=== PATIENT | female | born 1965 | race American Indian/Alaskan Native ===

== ENCOUNTER 2019-12-13 15:09 | Emergency (ER) | payer OTHER ==
--- NOTE | 2019-12-13 15:56 | Emergency Department Report ---
ED Dizziness HPI - General Chief Complaint: Chest Pain Stated Complaint: HYPERTENSIVE CRISIS/CHEST PAIN Time Seen by Provider: 12/13/19 15:40 Source: patient, EMS Mode of arrival: Stretcher Limitations: No Limitations - History of Present Illness Initial Comments: 54-year-old female, history of diabetes, presents to ED with complaint of dizziness. Patient states she was at home watching TV and approximately 3 hours ago she began to feel dizzy, as if the room were spinning, with associated nausea. Patient later vomited. While vomiting she had a nosebleed. After vomiting, she experienced chest pain. EMS was called. Triage notes states that patient's daughter reported slurred speech, however, I spoke with patient's 17 yr old daughter over the phone and she denies that patient had any slurred speech. Daughter states speech was always normal, never slurred. States she sounded as if she was a little out of breath. Patient states she was just speaking very slowly because of her chest pain. She denies any extremity numbness or weakness. No reported facial droop. Patient denies fever, cough, diarrhea, headache, exposure to any known COVID-positive persons. MD Complaint: dizziness -: hour(s) (3) History of Same: No History of Trauma: No Severity: moderate Improves With: nothing Worsens With: nothing Associated Symptoms: chest pain. denies: cough, fever/chills, shortness of breath - Related Data Home Medications Medication Instructions Recorded Confirmed Last Taken Rosuvastatin (Nf) [Crestor] 5 mg PO QHS 08/15/16 08/15/16 08/14/16 Previous Rx's Medication Instructions Recorded Last Taken Type AtorvaSTATin 10 mg PO QHS tablet 08/17/16 Unknown Rx Cyanocobalamin [Vitamin B-12] 1,000 mcg SUB-Q DAILY vial 08/17/16 Unknown Rx Ferrous Sulfate [Feosol 325 MG tab] 325 mg PO DAILY tablet 08/17/16 Unknown Rx Pioglitazone [Actos] 15 mg PO QDAY tablet 08/17/16 Unknown Rx Meclizine [Antivert] 25 mg PO TID PRN #20 tablet 12/13/19 Unknown Rx Allergies Allergy/AdvReac Type Severity Reaction Status Date / Time No Known Allergies Allergy Verified 03/31/15 11:11 ED Review of Systems ROS: Stated complaint: HYPERTENSIVE CRISIS/CHEST PAIN Other details as noted in HPI Comment: All other systems reviewed and negative Constitutional: denies: chills, fever ENT: epistaxis Respiratory: denies: cough, shortness of breath Cardiovascular: chest pain Gastrointestinal: vomiting Neurological: vertigo. denies: headache, weakness, numbness ED Past Medical Hx - Past Medical History Hx Diabetes: Yes - Surgical History Additional Surgical History: - Social History Smoking Status: Never Smoker Substance Use Type: Alcohol - Medications Home Medications: Home Medications Medication Instructions Recorded Confirmed Last Taken Type Rosuvastatin (Nf) [Crestor] 5 mg PO QHS 08/15/16 08/15/16 08/14/16 History AtorvaSTATin 10 mg PO QHS tablet 08/17/16 Unknown Rx Cyanocobalamin [Vitamin B-12] 1,000 mcg SUB-Q DAILY vial 08/17/16 Unknown Rx Ferrous Sulfate [Feosol 325 MG tab] 325 mg PO DAILY tablet 08/17/16 Unknown Rx Pioglitazone [Actos] 15 mg PO QDAY tablet 08/17/16 Unknown Rx Meclizine [Antivert] 25 mg PO TID PRN #20 tablet 12/13/19 Unknown Rx ED Physical Exam - General Limitations: No Limitations General appearance: alert, in no apparent distress - Head Head exam: Present: atraumatic, normocephalic - Eye Eye exam: Present: normal appearance, EOMI - ENT ENT exam: Present: mucous membranes moist, other (No epistaxis present) - Neck Neck exam: Present: normal inspection - Respiratory Respiratory exam: Present: normal lung sounds bilaterally. Absent: respiratory distress - Cardiovascular Cardiovascular Exam: Present: regular rate, normal rhythm - GI/Abdominal GI/Abdominal exam: Present: soft. Absent: distended, tenderness - Extremities Exam Extremities exam: Present: normal inspection - Neurological Exam Neurological exam: Present: alert, oriented X3, CN II-XII intact, normal gait. Absent: motor sensory deficit - Psychiatric Psychiatric exam: Present: normal affect, normal mood - Skin Skin exam: Present: warm, dry, intact, normal color ED Course Vital Signs 12/13/19 12/13/19 12/13/19 15:25 16:30 18:17 Temperature 97.9 F Pulse Rate 74 70 85 Respiratory 12 12 19 Rate Blood Pressure 145/68 Blood Pressure 145/68 152/80 115/74 [Left] O2 Sat by Pulse 99 100 98 Oximetry - Reevaluation(s) Reevaluation #1: 12/13/19 18:00 Pt feeling much better. Ambulated to the bathroom and back w/ nurse, without assistance. ED Medical Decision Making - Lab Data Result diagrams: 12/13/19 16:05 12/13/19 16:05 - EKG Data -: EKG Interpreted by Me EKG shows normal: sinus rhythm, axis, intervals, QRS complexes, ST-T waves Rate: normal - EKG Data Interpretation: no acute changes - Radiology Data Radiology results: report reviewed, image reviewed - Medical Decision Making 54-year-old female presents to ED with dizziness. Neuro exam is normal, nonfocal. CT head normal. Patient emesis and chest pain as well. EKG, troponin both normal. Patient mildly hypertensive when she arrived, however BP has improved. Patient ambulating without assistance. Patient has normal gait. She is feeling much better at this time. Will discharge home. Prescription given for meclizine and case that this may have possibly been benign positional vertigo. Outpatient follow-up advised. Return precautions given. - Differential Diagnosis CVA, intracranial abnormality, ACS Critical care attestation.: If time is entered above; I have spent that time in minutes in the direct care of this critically ill patient, excluding procedure time. ED Disposition Clinical Impression: Dizziness, Chest pain, Nausea & vomiting Disposition: TO HOME OR SELFCARE Is pt being admited?: No Condition: Stable Instructions: Chest Pain (ED), Benign Paroxysmal Positional Vertigo (ED), Dizziness (ED) Prescriptions: Meclizine [Antivert] 25 mg PO TID PRN #20 tablet PRN Reason: Vertigo Referrals: PRIMARY CARE [Primary Care Provider] - 3-5 Days [facility] [Provider Group] - 3-5 Days Time of Disposition: 18:01
[2019-12-13 16:19] LABS: Basophils % (Auto) 0.7 % (0.0-1.8); Eosinophils # (Auto) 0.1 K/mm3 (0.0-0.4); Eosinophils % (Auto) 1.3 % (0.0-4.3); Hemoglobin 12.1 gm/dl (10.1-14.3); Lymphocytes # (Auto) 0.8 K/mm3 (1.2-5.4); Mean Corpuscular HGB Conc 34 % (30-34); Mean Corpuscular Volume 95 fl (79-97); Monocytes # (Auto) 0.2 K/mm3 (0.0-0.8); Monocytes % (Auto) 3.8 % (0.0-7.3); Platelet Count 184 K/mm3 (140-440); Red Cell Distribution Width 16.1 % (13.2-15.2)
--- NOTE | 2019-12-13 16:22 | XRay Report ---
CHEST 1 VIEW INDICATION: chest pain. COMPARISON: 08/15/2016 FINDINGS: Support devices: None. Heart: Within normal limits. Lungs/Pleura: No acute air space or interstitial disease. Additional findings: None. IMPRESSION: 1. No acute findings. Signer Name: Phillip Dhaliwal MD Signed: 12/13/2019 4:17 PM Workstation Name: [id number]
[2019-12-13 16:29] LABS: INR 0.99 (0.87-1.13)
[2019-12-13 16:30] LABS: Partial Thromboplastin Time 28.6 Sec. (24.2-36.6)
--- NOTE | 2019-12-13 16:36 | Cat Scan Report ---
CT head/brain wo con INDICATION / CLINICAL INFORMATION: 54 years Female; dizziness. TECHNIQUE: Routine CT head without contrast. All CT scans at this location are performed using CT dos e reduction for ALARA by means of automated exposure control. COMPARISON: None. FINDINGS: BRAIN / INTRACRANIAL CONTENTS: No acute hemorrhage, mass effect, midline shift, hydrocephalus, or acu te, large territorial infarct. No chronic infarct or atrophy appreciated. No significant white matter abnormality. CRANIOCERVICAL JUNCTION: No significant abnormality. ORBITS: No significant abnormality of visualized orbits. SINUSES / MASTOIDS: No significant abnormality the visualized paranasal sinuses or mastoid air cells. ADDITIONAL FINDINGS: None. IMPRESSION: 1. No focal mass, hemorrhage, hydrocephalus, or acute, large territorial infarct. Signer Name: Bean Rowland MD, III Signed: 12/13/2019 4:32 PM Workstation Name: [id number]
[2019-12-13 16:43] LABS: Alanine Aminotransferase 17 units/L (7-56); BUN/Creatinine Ratio 21; Blood Urea Nitrogen 15 mg/dL (7-17); Calcium 9.5 mg/dL (8.4-10.2); Hemolysis Index 6
[2019-12-13 16:46] LABS: Bilirubin,Direct < 0.2 mg/dL (0-0.2)
[2019-12-13 17:04] LABS: Bacteria,Urine 1+ /HPF (Negative); Bilirubin,Urine NEG (Negative); Blood,Urine SM (Negative); Color,Urine Yellow (Yellow); Mucus,Urine FEW /HPF; Urobilinogen,Urine < 2.0 mg/dL (<2.0)
[2019-12-13 18:18] VITALS: BP 115/74
== END 2019-12-13 18:59 | disposition home or self-care (01) ==
LOC: ED 15:09
DX: R42 Dizziness and giddiness (principal); R11.2 Nausea with vomiting, unspecified; R07.89 Other chest pain; E11.9 Type 2 diabetes mellitus without complications; Z79.899 Other long term (current) drug therapy
CPT/HCPCS: 36415; 70450; 71045; 80048; 80076; 81001; 83690; 84484; 85025; 85610; 85730; 93005